=== PATIENT | male | born 1955 | race African-American/Black ===

== ENCOUNTER 2019-08-08 15:29 | Inpatient (IN) | payer MEDICARE, MEDICAID ==
[~2019-08-08] VITALS: Ht 185.4 cm; Wt 65.8 kg
[2019-08-08 15:36] VITALS: BP 105/63
--- NOTE | 2019-08-08 15:36 | NUR ---
ED Nurse Note: Pt brought in by ambulance to ED from SNF for failure to thrive. He is bedrest, weak, lack of appetite for weeks. Pt is alert and orientedx1, cooperative and obeys commands. Pt has roommate in SNF positive for Covid. No fever or cough. Pt lungs clear bilaterally.
[2019-08-08] MEDS ORDERED: DONEPEZIL HCL10 M2 ORAL (15:40)
[2019-08-08] MEDS ORDERED: PROTONIX20 MG ORAL (15:40)
[2019-08-08] MEDS ORDERED: CRANBERRY450 M4 PO (15:40)
[2019-08-08] MEDS ORDERED: NAMENDA10 MG ORAL (15:40)
[2019-08-08] MEDS ORDERED: DOCUSATE SODIU100 M2 ORAL (15:40)
[2019-08-08] MEDS ORDERED: FINASTERIDE5 MG ORAL (15:40)
[2019-08-08] MEDS ORDERED: FLOMAX0.4 MG ORAL (15:40)
[2019-08-08] MEDS ORDERED: ACETAMINOPHEN325 M1 ORAL (15:40)
[2019-08-08] MEDS ORDERED: MOM30 ML ORAL (15:40)
--- NOTE | 2019-08-08 16:16 | Diagnostic Imaging Report ---
Indication: Shortness of breath Technique: One view of the chest Comparison: none Findings: Inspiration is suboptimal. Somewhat prominent interstitial opacities are seen at both lung bases. There may be some atelectasis at the right lung base. The heart size is normal. The pleural spaces are clear. Impression: Prominent basilar interstitial opacities, nonspecific, early infiltrates possible. Right basilar atelectasis.
--- NOTE | 2019-08-08 16:20 | Emergency Room Report ---
History of Present Illness General Chief Complaint: General Complaint Source: Medical Record, EMS Present Illness HPI This patient presents from a long term facility. The patient has multiple chronic medical problems and is oriented to self at baseline. Per report from the long term facility, the patient has had poor oral intake. He presents for further evaluation. The patient himself is only oriented to self and unable to give any type of history. Allergies: Coded Allergies: No Known Allergies (Unverified , 08/08/19) COVID-19 Screening Contact w/high risk pt: Yes Recent Travel to affected area: No Experienced COVID-19 symptoms?: No Patient History Past Medical History: see triage record, GERD, dementia, psych hx - schizophrenia, other - Hx of Liver failure. Social History: Denies: smoking, alcohol use, drug use Reviewed Nursing Documentation: PMH: Agreed; PSxH: Agreed Nursing Documentation-PMH Hx Gastrointestinal Problems: Yes - dysphagia Review of Systems All Other Systems: negative except mentioned in HPI Physical Exam Vital Signs Date Time Temp Pulse Resp B/P (MAP) Pulse Ox O2 Delivery O2 Flow Rate FiO2 08/08/19 15:22 99.0 86 18 100/65 (77) 98 Room Air Sp02 EP Interpretation: reviewed, normal General Appearance: no apparent distress, alert, GCS 15, non-toxic Head: normocephalic, atraumatic Eyes: bilateral eye normal inspection ENT: hearing grossly normal, no angioedema Neck: normal inspection Respiratory: chest non-tender, lungs clear, normal breath sounds, no respiratory distress, no retraction, no accessory muscle use, speaking full sentences Cardiovascular #1: regular rate, rhythm, no edema Gastrointestinal: normal bowel sounds, soft, non-distended Rectal: deferred Musculoskeletal: other - At Baseline Neurologic: alert, motor strength/tone normal, oriented x3, sensory intact, responsive, speech normal Psychiatric: mood/affect normal Skin: other - See RN skin exam Medical Decision Making Diagnostic Impression: Primary Impression: Suspected COVID-19 virus infection ER Course This patient presents from a long term facility and further history was obtained that identified this patient's roommate was COVID 19+. The patient's chest x-ray has mild pulmonary edema consistent with COVID-19 lung findings. The patient was placed on droplet precautions. He remained stable in the emergency department. He is admitted for further evaluation and treatment. This patient was evaluated in the context of the global COVID-19 pandemic, which necessitated consideration that the patient might be at risk for infection with the [id number] virus that causes COVID-19. Institutional protocols and algorithms that pertain to the evaluation of patients at risk for COVID-19 and the state of rapid change based on information released by multiple regulatory bodies including the CDC and federal and state organizations. These policies and algorithms were followed during the patient' s care in the ED. Laboratory Tests Test 08/08/19 16:04 White Blood Count 5.0 K/UL (4.8-10.8) Red Blood Count 5.06 M/UL (4.70-6.10) Hemoglobin 15.1 G/DL (14.2-18.0) Hematocrit 47.3 % (42.0-52.0) Mean Corpuscular Volume 93 FL (80-99) Mean Corpuscular Hemoglobin 29.8 PG (27.0-31.0) Mean Corpuscular Hemoglobin Concent 31.9 G/DL (32.0-36.0) L Red Cell Distribution Width 13.4 % (11.6-14.8) Platelet Count 137 K/UL (150-450) L Mean Platelet Volume 8.7 FL (6.5-10.1) Neutrophils (%) (Auto) 55.4 % (45.0-75.0) Lymphocytes (%) (Auto) 35.5 % (20.0-45.0) Monocytes (%) (Auto) 8.3 % (1.0-10.0) Eosinophils (%) (Auto) 0.1 % (0.0-3.0) Basophils (%) (Auto) 0.7 % (0.0-2.0) Urine Color Brown Urine Appearance Cloudy Urine pH 6 (4.5-8.0) Urine Specific [place] 1.020 (1.005-1.035) Urine Protein 2+ (NEGATIVE) H Urine Glucose (UA) Negative (NEGATIVE) Urine Ketones 1+ (NEGATIVE) H Urine Blood 5+ (NEGATIVE) H Urine Nitrite Negative (NEGATIVE) Urine Bilirubin 1+ (NEGATIVE) H Urine Ictotest Negative (NEGATIVE) Urine Urobilinogen 8 MG/DL (0.0-1.0) H Urine Leukocyte Esterase 1+ (NEGATIVE) H Urine RBC Tntc /HPF (0 - 0) H Urine WBC 2-4 /HPF (0 - 0) Urine Squamous Epithelial Cells None /LPF (NONE/OCC) Urine Bacteria Occasional /HPF (NONE) Sodium Level 141 MMOL/L (136-145) Potassium Level 4.0 MMOL/L (3.5-5.1) Chloride Level 103 MMOL/L (98-107) Carbon Dioxide Level 30 MMOL/L (21-32) Anion Gap 8 mmol/L (5-15) Blood Urea Nitrogen 13 mg/dL (7-18) Creatinine 0.8 MG/DL (0.55-1.30) Estimated Glomerular Filtration Rate > 60 mL/min (>60) Glucose Level 109 MG/DL (74-106) H Lactic Acid Level 1.60 mmol/L (0.4-2.0) Calcium Level 8.5 MG/DL (8.5-10.1) Total Bilirubin 0.3 MG/DL (0.2-1.0) Aspartate Amino Transferase (AST) 27 U/L (15-37) Alanine Aminotransferase (ALT) 20 U/L (12-78) Alkaline Phosphatase 70 U/L (46-116) Total Creatine Kinase 86 U/L (26-308) Creatine Kinase MB 0.5 NG/ML (0.0-3.6) Creatine Kinase MB Relative Index 0.5 Troponin I 0.000 ng/mL (0.000-0.056) Total Protein 7.0 G/DL (6.4-8.2) Albumin 3.0 G/DL (3.4-5.0) L Globulin 4.0 g/dL Albumin/Globulin Ratio 0.8 (1.0-2.7) L EKG Diagnostic Results Rate: normal Rhythm: NSR ST Segments: no acute changes Rhythm Strip Diag. Results EP Interpretation: yes Rate: 80's Rhythm: NSR, no PVC's, no ectopy Chest X-Ray Diagnostic Results Chest X-Ray Diagnostic Results : Chest X-Ray Ordered: Yes # of Views/Limited/Complete: 1 View Indication: Other - FTT EP Interpretation: Yes Interpretation: other - Diffuse patchy opacities c/w mild pulmonary edema. Impression: Other - +interstitial edema Electronically Signed by: Vianney Andre DO Last Vital Signs Date Time Temp Pulse Resp B/P (MAP) Pulse Ox O2 Delivery O2 Flow Rate FiO2 08/08/19 15:22 99.0 86 18 100/65 (77) 98 Room Air Disposition: ADMITTED INPATIENT Condition: Serious Referrals: Zhou Andrade MD (PCP) Vianney Andre DO Aug 08, 2019 16:20
--- NOTE | 2019-08-08 16:30 | NUR ---
ED Nurse Note: Dr Andre notified pt combative when trying to draw blood and inptu straight cath.
--- NOTE | 2019-08-08 16:30 | NUR ---
ED Nurse Note: Covid, blood labs, and urine sent to lab.
[2019-08-08 16:54] LABS: APPEARANCE,URINE CLOUDY; BILIRUBIN, URINE 1+ (NEGATIVE); COLOR,URINE BROWN; GLUCOSE, URINE (UA) NEGATIVE (NEGATIVE); KETONES,URINE 1+ (NEGATIVE); LEUKOCYTE ESTERASE ,URINE 1+ (NEGATIVE); NITRITE,URINE NEGATIVE (NEGATIVE); PH,URINE 6 (4.5-8.0); PROTEIN,URINE 2+ (NEGATIVE); UROBILINOGEN,URINE 8 MG/DL (0.0-1.0)
[2019-08-08 16:57] LABS: BASOPHILS % (AUTO) 0.7 % (0.0-2.0); EOSINOPHILS % (AUTO) 0.1 % (0.0-3.0); HEMATOCRIT 47.3 % (42.0-52.0); HEMOGLOBIN 15.1 G/DL (14.2-18.0); LYMPHOCYTES % (AUTO) 35.5 % (20.0-45.0); MEAN CORPUSCULAR VOLUME 93 FL (80-99); MONOCYTES % (AUTO) 8.3 % (1.0-10.0); NEUTROPHILS % (AUTO) 55.4 % (45.0-75.0); PLATELET COUNT 137 K/UL (150-450); RED BLOOD COUNT 5.06 M/UL (4.70-6.10); RED CELL DISTRIBUTION WIDTH 13.4 % (11.6-14.8)
[2019-08-08 17:11] LABS: ANION GAP 8 mmol/L (5-15); BLOOD UREA NITROGEN 13 mg/dL (7-18); CALCIUM 8.5 MG/DL (8.5-10.1); CARBON DIOXIDE 30 MMOL/L (21-32); CHLORIDE 103 MMOL/L (98-107); CREATININE 0.8 MG/DL (0.55-1.30); SODIUM 141 MMOL/L (136-145)
[2019-08-08 17:25] LABS: ALANINE AMINOTRANSFERASE 20 U/L (12-78); ALBUMIN/GLOBULIN RATIO 0.8 (1.0-2.7); ALKALINE PHOSPHATASE 70 U/L (46-116); ASPARTATE AMINO TRANSFERASE 27 U/L (15-37); BILIRUBIN,TOTAL 0.3 MG/DL (0.2-1.0); CKMB 0.5 NG/ML (0.0-3.6); CREATINE KINASE 86 U/L (26-308)
[2019-08-08 18:50] VITALS: BP 111/63
[2019-08-08] MEDS ORDERED: LORazepam Inj 2mg/ml 1ml IV ONE (19:00)
--- NOTE | 2019-08-08 19:20 | NUR ---
ED Nurse Note: Report received from SUMMER Garvey. Pt is resting in bed at this time, appears mildly anxious, but did recently receive ativan. Will continue to monitor. Pt placed on portable electronic device monitor. Pt is awake and alert. Vital signs are stable. Safety measures in place. Pt repositioned.
[2019-08-08 19:30] VITALS: BP 110/63
[2019-08-08] MEDS ORDERED: Azithromycin 500 MG in NS 275 ML IV ONE (20:00)
[2019-08-08] MEDS ORDERED: Haloperidol 5mg/ml Inj IM PRN (20:15)
[2019-08-08] MEDS ORDERED: LORazepam Inj 2mg/ml 1ml IV PRN (20:15)
[2019-08-08] MEDS ORDERED: Acetaminophen 500mg (ES) tab ORAL PRN (20:15)
--- NOTE | 2019-08-08 20:15 | NUR ---
ED Nurse Note: Received bridging orders from Dr. andrea.
[2019-08-08 21:00] VITALS: BP 119/101
--- NOTE | 2019-08-08 21:00 | NUR ---
ED Nurse Note: Pt resting in bed with eyes closed, NAD. Vital signs are stable.
--- NOTE | 2019-08-08 22:00 | NUR ---
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 Safety measures in place.
[2019-08-08] MEDS: D5 1/2NS w/KCl 20mEq 1,000 ML IV SCH (22:19)
[2019-08-08 22:30] VITALS: BP 102/71
--- NOTE | 2019-08-08 22:30 | NUR ---
ED Nurse Note: IV fluids initiated, pt repositioned. Pt is in no acute distress and vital signs are stable, see flowsheet. Will continue to monitor pt.
[2019-08-09] VITALS (10 sets, daily range): BP systolic 102–136; BP diastolic 64–91
--- NOTE | 2019-08-09 00:30 | NUR ---
ED Nurse Note: Pt appears to be sleeping in bed. No acute distress noted. Vital signs are stable.
--- NOTE | 2019-08-09 02:30 | NUR ---
ED Nurse Note: Pt is sleeping at this time, NAD. VSS.
--- NOTE | 2019-08-09 04:30 | NUR ---
ED Nurse Note: Pt is awake and moving extremities in bed. No acute distress, breathing is normal and unlabored. Pt VSS, see flowsheet. Safety measures in place. Will cont. to monitor pt. IV patent and intact, IV fluids still infusing as ordered.
--- NOTE | 2019-08-09 05:55 | NUR ---
ED Nurse Note: AM labs drawn by RN and sent to lab.
--- NOTE | 2019-08-09 06:00 | NUR ---
ED Nurse Note: Pt moved to room 7 and placed in lu bed. Pt repositioned, skin is clean/dry/intact. Pt connected to desk monitor. Pt provided with blankets for comfort. Pt is in no acute distress, he is awake and alert able to answer simple, yes and no questions. Pt IV is patent and intact. Vital signs are stable. Safety measures in place.
[2019-08-09 06:14] LABS: BASOPHILS % (AUTO) 0.7 % (0.0-2.0); EOSINOPHILS % (AUTO) 0.1 % (0.0-3.0); HEMATOCRIT 45.5 % (42.0-52.0); HEMOGLOBIN 15.9 G/DL (14.2-18.0); LYMPHOCYTES % (AUTO) 41.4 % (20.0-45.0); MEAN CORPUSCULAR VOLUME 89 FL (80-99); MONOCYTES % (AUTO) 7.6 % (1.0-10.0); NEUTROPHILS % (AUTO) 50.2 % (45.0-75.0); PLATELET COUNT 127 K/UL (150-450); RED BLOOD COUNT 5.12 M/UL (4.70-6.10); RED CELL DISTRIBUTION WIDTH 11.8 % (11.6-14.8); WHITE BLOOD COUNT 5.1 K/UL (4.8-10.8)
[2019-08-09 06:30] LABS: ALANINE AMINOTRANSFERASE 17 U/L (12-78); ALBUMIN/GLOBULIN RATIO 0.7 (1.0-2.7); ALKALINE PHOSPHATASE 68 U/L (46-116); ANION GAP 7 mmol/L (5-15); ASPARTATE AMINO TRANSFERASE 28 U/L (15-37); BILIRUBIN,TOTAL 0.4 MG/DL (0.2-1.0); BLOOD UREA NITROGEN 9 mg/dL (7-18); CALCIUM 8.6 MG/DL (8.5-10.1); CARBON DIOXIDE 29 MMOL/L (21-32); CHLORIDE 103 MMOL/L (98-107); CREATININE 0.8 MG/DL (0.55-1.30); POTASSIUM 3.8 MMOL/L (3.5-5.1); SODIUM 139 MMOL/L (136-145)
--- NOTE | 2019-08-09 07:20 | NUR ---
HAND-OFF: Report given to SUMMER Thompson and endorsed plan of care.
--- NOTE | 2019-08-09 07:34 | NUR ---
ED Nurse Note: Report received camron Estrada RN. Pt shows no signs of acute distress. Pt lying in bed in semi-fowlers. A+Ox1. Respirations even and unlabored on room air. Vitals stable as documented.
[2019-08-09] MEDS: D5 1/2NS w/KCl 20mEq 1,000 ML IV SCH ×2 (09:43→22:11)
--- NOTE | 2019-08-09 13:10 | NUR ---
ED Nurse Note: Regular diet sent for patient, however pt has no teeth. Checked SNF paperwork and noted pt has pureed diet there. Diet changed and new tray called for.
[2019-08-09] MEDS ORDERED: cefTRIAXone 1 GM in NS 55 ML IVPB ONE (13:15)
[2019-08-09] MEDS ORDERED: Azithromycin 500 MG in NS 275 ML IV ONE (13:15)
--- NOTE | 2019-08-09 18:22 | NUR ---
ED Nurse Note: Pt incontinent of urine x1. Pt washed and linen changed.
--- NOTE | 2019-08-09 19:15 | NUR ---
ED Nurse Note: Report received from SUMMER Thompson. Pt is awake and alert, resting in bed. NAD, breathing is normal and unlabored. Safety measures in place. VSS. Will cont. to monitor.
--- NOTE | 2019-08-09 21:50 | NUR ---
ED Nurse Note: Report given to SUMMER Betts.
--- NOTE | 2019-08-09 22:15 | NUR ---
ED Nurse Note: Pt is stable for transfer to unit at this time per ERMD. Pt is aaox1, no acute distress noted. VSS. Pt being transferred to unit via gurney, connected to case monitor by carly and RN with ISO precuations in place. Pt belongings sent with pt. IV is patent and intact.
--- NOTE | 2019-08-09 22:30 | NUR ---
NURSE NOTES: Got report from Natalie WHEELER. Pt arrived via gurney from ER. Pt in stable condition. Pt is A+Ox2-3. Pt is nonambulatory. VSS T:98 HR:76 R:16 BP:134/113 O2:98% on room air. Denies any pain or n/v. Pt has L FA 20g patent intact. No skin issues noted. Pt is incontinent. Pt on enchilada maker running Sinus Rhythm. No s/s of distress or discomfort noted. Pt resting in bed comfortably. Bed in low and locked position, call light within reach, bedside table within reach. Continue to monitor. Orders placed by Dr. Andrade.
[2019-08-10] VITALS: BP 134/113
--- NOTE | 2019-08-10 01:49 | History & Physical ---
History of Present Illness General Date patient seen: Aug 09, 2019 Time patient seen: 22:55 Reason for Hospitalization: Failure to thrive Present Illness HPI Also patient may have Covid 19 he is not eating or dirnking Allergies: Coded Allergies: No Known Allergies (Unverified , 08/08/19) COVID-19 Screening Contact w/high risk pt: Yes Recent Travel to affected area: No Experienced COVID-19 symptoms?: No COVID-19 symptoms experienced: Flu-Like Symptoms Medication History Scheduled Docusate Sodium (Docusate Sodium), 100 MG ORAL DAILY, (Reported) Donepezil Hcl* (Donepezil Hcl*), 10 MG ORAL DAILY, (Reported) Finasteride (Finasteride), 5 MG ORAL DAILY, (Reported) Magnesium Hydroxide (Milk of Magnesia), 30 ML ORAL DAILY, (Reported) Memantine Hcl* (Namenda*), 10 MG ORAL DAILY, (Reported) Pantoprazole Sodium (Protonix), 20 MG ORAL DAILY, (Reported) Tamsulosin HCl (Flomax), 0.4 MG ORAL DAILY, (Reported) Scheduled PRN Acetaminophen* (Acetaminophen 325MG Tablet*), 325 MG ORAL Q4H PRN for , ( Reported) Miscellaneous Medications Cranberry Fruit Concentrate (Cranberry), 450 MG PO, (Reported) Patient History Limited by: medical condition History Provided By: Medical Record Healthcare decision maker N Resuscitation status Advanced Directive on File Past Medical/Surgical History Past Medical/Surgical History: (1) Anemia (2) Dementia (3) Suspected COVID-19 virus infection (4) Depression Review of Systems Review of Symptoms General ROS: weight loss or fever Psychological ROS: depression and mood changes, memory loss Ophthalmic ROS: no visual changes or eye irritation ENT ROS: no nasal congestion, hearing loss, dizziness Allergy and Immunology ROS: no allergic symptoms or urticaria Hematological and Lymphatic ROS: no swollen glands, unusual bleeding or bruising Endocrine ROS: no polyuria, polydipsia, weight changes, temperature intolerance Respiratory ROS: no cough, shortness of breath, or wheezing Cardiovascular ROS: no chest pain or dyspnea on exertion Gastrointestinal ROS: denies abdominal pain, bright red blood in stool. Musculoskeletal ROS: myalgias or arthralgias Neurological ROS: no TIA or stroke symptoms Dermatological ROS: no new or changing skin lesions, rashes or pruritis Physical Exam Physical Exam General appearance: alert, cooperative, no distress, appears stated age Head: Normocephalic, without obvious abnormality, atraumatic Eyes: conjunctivae/corneas clear. PERRL, EOM's intact. Fundi benign Throat: Lips, mucosa, and tongue normal. Teeth and gums normal Neck: supple, symmetrical, trachea midline, no adenopathy, thyroid: not enlarged, symmetric, no tenderness/mass/nodules, no carotid bruit and no JVD Lungs: clear to auscultation bilaterally Heart: regular rate and rhythm, S1, S2 normal, no murmur, click, rub or gallop Abdomen: soft, non-tender. Bowel sounds normal. No masses, no organomegaly Extremities: extremities normal, atraumatic, no cyanosis or edema Pulses: 2+ and symmetric Skin: Skin color, texture, turgor normal. No rashes or lesions Neurologic: Grossly normal Last 24 Hour Vital Signs Date Time Temp Pulse Resp B/P (MAP) Pulse Ox O2 Delivery O2 Flow Rate FiO2 08/09/19 22:30 67 08/09/19 22:15 98.5 74 14 119/65 100 Room Air 98 08/09/19 21:30 98.0 82 16 113/80 100 Room Air 98 08/09/19 19:25 98.0 80 14 136/91 100 Room Air 98 08/09/19 15:43 72 12 127/84 97 Room Air 98 08/09/19 13:10 74 12 121/79 98 Room Air 98 08/09/19 10:00 78 12 128/75 97 Room Air 98 08/09/19 08:00 72 12 121/71 99 Room Air 98 08/09/19 06:00 98.0 65 12 107/64 100 Room Air 98 08/09/19 04:30 98.7 67 17 102/65 100 Room Air 98 08/09/19 02:30 98.7 60 15 102/84 99 Room Air 98 Intake and Output 08/09/19 08/10/19 19:00 07:00 Intake Total 500 ml Balance 500 ml Intake Oral 500 ml # Voids 2 Laboratory Tests Test 08/09/19 06:00 White Blood Count 5.1 K/UL (4.8-10.8) Red Blood Count 5.12 M/UL (4.70-6.10) Hemoglobin 15.9 G/DL (14.2-18.0) Hematocrit 45.5 % (42.0-52.0) Mean Corpuscular Volume 89 FL (80-99) Mean Corpuscular Hemoglobin 31.1 PG (27.0-31.0) H Mean Corpuscular Hemoglobin Concent 35.0 G/DL (32.0-36.0) Red Cell Distribution Width 11.8 % (11.6-14.8) Platelet Count 127 K/UL (150-450) L Mean Platelet Volume 6.6 FL (6.5-10.1) Neutrophils (%) (Auto) 50.2 % (45.0-75.0) Lymphocytes (%) (Auto) 41.4 % (20.0-45.0) Monocytes (%) (Auto) 7.6 % (1.0-10.0) Eosinophils (%) (Auto) 0.1 % (0.0-3.0) Basophils (%) (Auto) 0.7 % (0.0-2.0) Sodium Level 139 MMOL/L (136-145) Potassium Level 3.8 MMOL/L (3.5-5.1) Chloride Level 103 MMOL/L (98-107) Carbon Dioxide Level 29 MMOL/L (21-32) Anion Gap 7 mmol/L (5-15) Blood Urea Nitrogen 9 mg/dL (7-18) Creatinine 0.8 MG/DL (0.55-1.30) Estimat Glomerular Filtration Rate > 60 mL/min (>60) Glucose Level 112 MG/DL (74-106) H Calcium Level 8.6 MG/DL (8.5-10.1) Total Bilirubin 0.4 MG/DL (0.2-1.0) Aspartate Amino Transf (AST/SGOT) 28 U/L (15-37) Alanine Aminotransferase (ALT/SGPT) 17 U/L (12-78) Alkaline Phosphatase 68 U/L (46-116) Total Protein 7.6 G/DL (6.4-8.2) Albumin 3.0 G/DL (3.4-5.0) L Globulin 4.6 g/dL Albumin/Globulin Ratio 0.7 (1.0-2.7) L Height (Feet): 6 Height (Inches): 1.00 Weight (Pounds): 145 Medications Current Medications Medications (Trade) Dose Ordered Sig/Chelle Route PRN Reason Start Time Stop Time Status Last Admin Dose Admin Acetaminophen (Tylenol) 500 mg Q4H PRN ORAL MILD PAIN/T>100.5 08/08/19 20:15 09/07/19 20:14 Dextrose/ Electrolytes 1,000 ml @ 80 mls/hr [id number] IV 08/08/19 21:11 09/07/19 21:10 08/09/19 22:11 Haloperidol Lactate (Haldol) 5 mg Q6H PRN IM Agitation 08/08/19 20:15 09/22/19 20:14 08/08/19 22:19 Lorazepam (Ativan 2mg/ml 1ml) 1 mg Q6H PRN IV Agitation 08/08/19 20:15 08/15/19 20:14 Assessment/Plan Status: stable Diagnosis [facility] I: Failure to thrive Diffuse weakness Schizoaffective disorder [facility] Hospital declaration INPATIENT level of care is warranted for this patient because patient is a 89 year old with who presents with suspicion of . I have a high level of concern because . Patient is at high risk for . Plan of care/treatment include . Patient care is expected to be greater than 2 midnights. OBSERVATION level of care is warranted for this patient. Patient is a 89 year old with who presents with . Patient will be admitted for 1 midnight, but if additional night(s) is/are necessary, patient will be converted to inpatient status for the entire hospitalization Disposition: Once the patient is stable to leave the hospital, I anticipate the patient will likely be discharged to the following environment: Estimated discharge date: I spent 70 minutes on this patient's case, and minutes was dedicated to counseling and/or care coordination. MIPS (Merit-based Incentive Payment System) Applicable CPT: 84976, 88631 CHECK ALL THAT ARE MET: Measure #5 (CHF): All ages. Prescribe ERNESTINE/ARB upon discharge for patients with left ventricular systolic dysfunction. If not, the reason is clearly documented in the medical chart. Measure #8 (CHF): All ages. Prescribe a beta christian upon discharge for patients with left ventricular systolic dysfunction. If not, the reason is clearly documented in the medical chart. Measure #47 Advance care plan or surrogate decision maker documented in the medical record. Measure #130 The provider has documented, updated, or reviewed the patients current medication list and has documented it in the patients note. Measure #374 (All): Send report to referring provider. Measure #407(Sepsis due to MSSA bacteremia): Age 18+ Patient treated with a beta-lactam antibiotic (Nafcillin, Oxacillin or Cefazolin) as definitive therapy. MEDICAL COMPLEXITY High complexity medical decision making (need 2/3 categories) Problem - need 4 points Acute/new problem with new plan for workup (4 points, 1 max) Acute/new problem without additional workup (3 points, 1 max) Unstable chronic problem actively being managed (2 point each, 2 max) Stable chronic problem actively being managed (1 point each, 2 max) Self-limited/transient process (constipation, muscle ache, etc) (1 point each , 2 max) Data - need 4 points Reviewed labs/imaging studies (1 points, 2 max) Independent review of imaging (EKG, xrays, etc) (2 points, 2 max) Discussed case with consult/other MD/RN (2 points, 2 max) High Risk - qualify if have one of the following: Severe exacerbation of acute problem, acute mental status change, IV narcotics , monitoring drug levels (vancomycin, INR, tacrolimus etc) Zhou Andrade MD Aug 10, 2019 01:49
--- NOTE | 2019-08-10 03:10 | NUR ---
NURSE NOTES: Lab called pt is positive COVID-19
[2019-08-10 04:00] VITALS: BP 127/63
--- NOTE | 2019-08-10 07:50 | NUR ---
HAND-OFF: Report given to Dottie WHEELER.
[2019-08-10 08:00] VITALS: BP 101/65
--- NOTE | 2019-08-10 08:10 | NUR ---
RD ASSESSMENT & RECOMMENDATIONS SEE CARE ACTIVITY FOR COMPLETE ASSESSMENT DAILY ESTIMATED NEEDS: Needs based on Cardiac, pulmonary 68.2kg 27-32 kcals/kg 9735-4502 total kcals 1-1.5 g protein/kg 68-102 g total protein 25-30 mL/kg 9155-3778 total fluid mLs NUTRITION DIAGNOSIS: Increased kcal needs r/t underweight status as evidenced by pt is 84% of [place] Body Weight, h/o CVA on texture modified diet w/ recent FTT and decreased po intake. (CURRENT DIET: Regular puree/ NTL) PO DIET RECOMMENDATIONS: Maintain liberalized Regular diet / texture puree + NTL -------- ADDITIONAL RECOMMENDATIONS: 1) Per SNF: 6'0" and 150# Maintain calibrated bed scale wts 2) Add Ensure TID w/ trays 3) MAIL OPENER eval for appropriate texture 4) Monitor po intake-> need for temporary non oral feeds.
--- NOTE | 2019-08-10 08:15 | NUR ---
NURSE NOTES: Pt is AOx1, Pt is on room air with stable 02 sat. Pt is on bedrest. Pt has IV site to Left FA running D5 1/2 NS +20KCL @ 80cc/hr. bed in lowest position, call light within reach, will continue with plan of care.
[2019-08-10] MEDS: D5 1/2NS w/KCl 20mEq 1,000 ML IV SCH ×2 (10:41→23:14)
--- NOTE | 2019-08-10 11:23 | NUR ---
CASE MANAGEMENT:REVIEW 64 YR OLD MALE BIBA FROM [facility] CC: FAILURE TO THRIVE. ROOMMATE AT SNF POSITIVE FOR COVID 19 SI: SUSPECTED COVID 19 99.0 86 18 100/65 98% ON RA PLT-137 ALB-3.0 IS: IV ATIVAN X1 IV AZITHROMYCIN X1 BLOOD CX CHEST XRAY COVID 19 ISOLATION PRECAUTIONS : TO TELEMETRY DCP: FROM [facility] PLAN: F/U COVID 19 TEST
[2019-08-10 12:00] VITALS: BP 126/71
[2019-08-10 16:00] VITALS: BP 129/70
--- NOTE | 2019-08-10 19:11 | NUR ---
HAND-OFF: Report given to azalea WHEELER.
--- NOTE | 2019-08-10 19:12 | NUR ---
NURSE NOTES: Got report from Dottie WHEELER. Pt in stable condition. No s/s of distress or discomfort noted. Pt resting in bed comfortably. Bed in low and locked position, call light within reach, bedside table within reach. Continue to monitor.
[2019-08-10 20:00] VITALS: BP 150/91
[2019-08-11] VITALS: BP 142/93
[2019-08-11 04:00] VITALS: BP 106/72
--- NOTE | 2019-08-11 05:27 | General Progress Note ---
Assessment/Plan Status: doing well, stable Status Narrative He is doing well making arrangement for discharge Assessment/Plan: Covid 19 positive Schizophrenia being treated Failure to thrive- on IV hydration Plan discharge back to [facility] Subjective Date patient seen: Aug 10, 2019 Time patient seen: 22:00 ROS Limited/Unobtainable: Yes Constitutional: Reports: weakness HEENT: Reports: no symptoms Cardiovascular: Reports: no symptoms Respiratory: Reports: no symptoms Gastrointestinal/Abdominal: Reports: no symptoms Genitourinary: Reports: no symptoms Neurologic/Psychiatric: Reports: pre-existing deficit Endocrine: Reports: no symptoms Hematologic/Lymphatic: Reports: no symptoms Allergies: Coded Allergies: No Known Allergies (Unverified , 08/08/19) Objective Last 24 Hour Vital Signs Date Time Temp Pulse Resp B/P (MAP) Pulse Ox O2 Delivery O2 Flow Rate FiO2 08/11/19 04:00 98.6 68 17 106/72 (83) 96 08/11/19 04:00 61 08/11/19 00:00 97.9 81 19 142/93 (109) 95 08/11/19 00:00 65 08/10/19 20:07 Room Air 08/10/19 20:00 97.4 83 19 150/91 (110) 95 08/10/19 20:00 75 08/10/19 16:00 67 08/10/19 16:00 97.7 73 20 129/70 (89) 98 08/10/19 12:00 71 08/10/19 12:00 97.6 71 20 126/71 (89) 97 08/10/19 09:00 Room Air 08/10/19 08:00 97.7 70 20 101/65 (77) 99 08/10/19 08:00 61 Intake and Output 08/10/19 08/11/19 19:00 07:00 # Voids 2 Height (Feet): 6 Height (Inches): 1.00 Weight (Pounds): 145 General Appearance: no apparent distress EENT: PERRL/EOMI Neck: non-tender, normal alignment Cardiovascular: normal rate Respiratory/Chest: chest wall non-tender Abdomen: normal bowel sounds, non tender, soft, no organomegaly, no mass Pelvis: normal external exam Extremities: normal range of motion, non-tender Neurologic: stockroom keeper II-XII grossly normal, no motor/sensory deficits, alert Skin: normal pigmentation Lymphatic: normal anterior cervical (L), normal anterior cervical (R), normal posterior cervical (L), normal posterior cervical (R), normal submandibular (L) , normal submandibular (R), normal supraclavicular (L), normal supraclavicular ( R), normal axillary (L), normal axillary (R), normal inguinal (L), normal inguinal (R), normal other Zhou Andrade MD Aug 11, 2019 05:27
[2019-08-11] MEDS: D5 1/2NS w/KCl 20mEq 1,000 ML IV SCH (05:37)
--- NOTE | 2019-08-11 06:00 | Consultation ---
DATE OF CONSULTATION: 08/11/2019 HISTORY OF PRESENT ILLNESS: This is a 64-year-old male with a history of depression, anemia, has been admitted to the hospital for possible COVID. The patient is presenting with depressed mood and anhedonia, worthlessness. The patient is now positive for COVID, presents with depressed mood, anhedonia, worthlessness, hopelessness. The patient is poor historian. He is oriented to date. He also has psychomotor retardation and is hopeless. No suicidal or homicidal ideation. PAST PSYCHIATRIC HISTORY: Depression and anxiety. Outside of the hospital, the patient is taking memantine and benazepril. No antidepressants. PAST MEDICAL HISTORY: Significant for anemia. ALLERGIES: No known drug allergies. SUBSTANCE USE HISTORY: No history of illicit drug use or alcohol. MENTAL STATUS EXAMINATION: The patient is alert and oriented to times, self, and place. Some insight into the situation. Mood is depressed. Affect is constricted. Congruent mood. Thought process is concrete. Thought content, no suicidal or homicidal ideation. Cognition is impaired. Insight and judgment impaired. ASSESSMENT: AXIS I: 1. Dementia. 2. Major depressive disorder. AXIS II: Deferred. AXIS III: As above. AXIS IV: Low. AXIS V: 20. PLAN: 1. . 2. Haldol p.r.n. 3. We will continue to follow and readjust the medications. Alyssia Estrada M.D. DR: Pantera JOB#: [id number] CC:
--- NOTE | 2019-08-11 07:43 | NUR ---
HAND-OFF: Report given to Winnie WHEELER. Addendum: 08/11/19 at 0747 by Bin Ayoub RN HAND-OFF: Report given to Yoan WHEELER.
[2019-08-11 08:00] VITALS: BP 115/68
--- NOTE | 2019-08-11 08:16 | NUR ---
NURSE NOTES: Pt in bed in high fowlers, eating breakfast on his own, pt calm and cooperative, Ox1 baseline for the patient, call light next to patient, bed alarm on, or incontinent, pt will need to be turned Q2hrs or less, IV intact, pt denies pain, no s/s of distress or sob noted.
[2019-08-11 12:00] VITALS: BP 112/71
--- NOTE | 2019-08-11 12:19 | NUR ---
CASE MANAGEMENT:REVIEW 08/11/19 SI: COVID 19 PNEUMONIA 97.8 65 18 115/68 98% ON RA IS: IVF@40/HR [place] PO QD : TELEMETRY STATUS DCP: PATIENT IS FROM [facility] PLAN: PER HEALTH DEPARTMENT GUIDELINES COVID 19 POSITIVE PATIENTS FROM [facility] MUST: 1) REMAIN HOSPITALIZED X10 DAYS 2) BE AFEBRILE X72 HR S PRIOR TO RETURNING TO SNF OR 3) HAVE 2 CONSECUTIVE NEGATIVE COVID 19 TEST
--- NOTE | 2019-08-11 12:24 | NUR ---
DISCHARGE PLANNING PER HEALTH DEPARTMENT GUIDELINES COVID 19 POSITIVE PATIENTS FROM [facility] MUST: 1) REMAIN HOSPITALIZED X10 DAYS 2) BE AFEBRILE X72 HR S PRIOR TO RETURNING TO SNF OR 3) HAVE 2 CONSECUTIVE NEGATIVE COVID 19 TEST
[2019-08-11 16:00] VITALS: BP 122/76
--- NOTE | 2019-08-11 19:50 | NUR ---
NURSE NOTES: Received pt and report from SUMMER Milton. Observed pt resting in bed with both eyes open. Pt is A/Ox1. conveyor monitor is in placed; pt is NSR. IV site intact, asymptomatic, and patent; running D5 1/2 NS w/KCL 20mEq @40cc/hr. Bed is in the lowest position and locked. Call light and bedside table is within reach. No signs/symptoms of acute distress noted at this time. Will continue plan of care.
[2019-08-11 20:00] VITALS: BP 120/68
--- NOTE | 2019-08-11 20:00 | NUR ---
HAND-OFF: Report given to Mag Rn, endorsed condom cath and how the patient my need to be turned and needs to be looked at every two hours .
[2019-08-12] VITALS: BP 122/58
--- NOTE | 2019-08-12 00:39 | General Progress Note ---
Assessment/Plan Status: doing well, stable Status Narrative He is doing well Assessment/Plan: Covid 19 positive Schizophrenia being treated Failure to thrive- on IV hydration Plan discharge back to [place] Subjective Date patient seen: Aug 11, 2019 Time patient seen: 23:00 ROS Limited/Unobtainable: No Constitutional: Reports: no symptoms HEENT: Reports: no symptoms Cardiovascular: Reports: no symptoms Respiratory: Reports: no symptoms Gastrointestinal/Abdominal: Reports: no symptoms Genitourinary: Reports: no symptoms Neurologic/Psychiatric: Reports: no symptoms Endocrine: Reports: no symptoms Hematologic/Lymphatic: Reports: no symptoms Allergies: Coded Allergies: No Known Allergies (Unverified , 08/08/19) Objective Last 24 Hour Vital Signs Date Time Temp Pulse Resp B/P (MAP) Pulse Ox O2 Delivery O2 Flow Rate FiO2 08/11/19 16:15 73 08/11/19 16:00 98.3 71 18 122/76 (91) 97 08/11/19 12:00 98.1 69 17 112/71 (85) 94 08/11/19 11:44 64 08/11/19 08:00 97.8 65 18 115/68 (84) 98 08/11/19 07:45 Room Air 08/11/19 07:42 66 08/11/19 04:00 98.6 68 17 106/72 (83) 96 08/11/19 04:00 61 Intake and Output 08/11/19 08/12/19 19:00 07:00 Intake Total 650 ml Output Total 400 ml Balance 250 ml Intake Oral 650 ml Output Urine Total 400 ml Height (Feet): 6 Height (Inches): 1.00 Weight (Pounds): 145 General Appearance: WD/WN, no apparent distress, confused EENT: PERRL/EOMI Neck: non-tender, normal alignment Cardiovascular: normal rate Respiratory/Chest: chest wall non-tender, lungs clear, decreased breath sounds Abdomen: normal bowel sounds, non tender, soft, no organomegaly Extremities: normal range of motion, non-tender Neurologic: no motor/sensory deficits, alert Zhou Andrade MD Aug 12, 2019 00:39
[2019-08-12 04:00] VITALS: BP 107/65
[2019-08-12] MEDS: D5 1/2NS w/KCl 20mEq 1,000 ML IV SCH (05:51)
--- NOTE | 2019-08-12 07:00 | NUR ---
NURSE NOTES:Handoff received from My,RN. Patient received awake and alert and able to make needs known, no acute signs of distress noted. Patient is on isolation for Covid. On room air, IV site clean dry and intact, running prescribed fluids. Bed in the low and locked position with call light within reach, will continue to monitor patient.
--- NOTE | 2019-08-12 07:32 | NUR ---
HAND-OFF: Report given to SUMMER Mcdonald. Plan of care endorsed.
[2019-08-12 08:00] VITALS: BP_SYST 119; BP_SYST 99; BP_DIAS 51; BP_DIAS 68
[2019-08-12 12:00] VITALS: BP 106/64
[2019-08-12 16:00] VITALS: BP 121/78
--- NOTE | 2019-08-12 19:35 | NUR ---
NURSE NOTES: Received pt and report from SUMMER Mcdonald. Observed pt resting in bed with both eyes open. Pt is A/Ox1. patient monitor is in placed; pt is NSR. IV site intact, asymptomatic, and patent; running D5 1/2 NS w/KCL 20mEq @40cc/hr. Bed is in the lowest position and locked. Call light and bedside table is within reach. No signs/symptoms of acute distress noted at this time. Will continue plan of care.
--- NOTE | 2019-08-12 19:42 | NUR ---
HAND-OFF: Report given to SUMMER Hathaway.
[2019-08-12 20:00] VITALS: BP 119/71
--- NOTE | 2019-08-12 20:15 | Progress Note ---
DATE: 08/11/2019 SUBJECTIVE: The patient is in bed, no acute distress noted. Episodes of anxiety, disoriented, difficult to manage and anxious. Poor insight. He is a poor historian and is unable to provide any history. MENTAL STATUS EXAMINATION: The patient is alert, oriented to self, disoriented. Mood is anxious. Affect is flat. Thought process is concrete. Thought content, no suicidal or homicidal ideation. ASSESSMENT: 1. Dementia. 2. Anxiety disorder. PLAN: 1. Continue the Haldol. 2. Citalopram. 3. Ativan as needed. Alyssia Estrada M.D. DR: KELSY JOB#: [id number] CC:
[2019-08-13] VITALS: BP 110/65
[2019-08-13 04:00] VITALS: BP 115/75
--- NOTE | 2019-08-13 04:33 | General Progress Note ---
Assessment/Plan Status: doing well, stable Assessment/Plan: Covid 19 positive Schizophrenia being treated Failure to thrive- on IV hydration Plan discharge back to [place] Subjective Date patient seen: Aug 12, 2019 Time patient seen: 22:50 Constitutional: Reports: weakness HEENT: Reports: no symptoms Cardiovascular: Reports: no symptoms Respiratory: Reports: SOB with excertion Gastrointestinal/Abdominal: Reports: no symptoms Genitourinary: Reports: no symptoms Neurologic/Psychiatric: Reports: no symptoms Endocrine: Reports: no symptoms Hematologic/Lymphatic: Reports: no symptoms Allergies: Coded Allergies: No Known Allergies (Unverified , 08/08/19) Objective Last 24 Hour Vital Signs Date Time Temp Pulse Resp B/P (MAP) Pulse Ox O2 Delivery O2 Flow Rate FiO2 08/13/19 00:00 97.7 71 19 110/65 (80) 99 08/12/19 23:35 63 08/12/19 21:00 Room Air 08/12/19 20:00 97.0 65 18 119/71 (87) 94 08/12/19 19:44 67 08/12/19 16:00 71 08/12/19 16:00 97.5 69 20 121/78 (92) 95 08/12/19 12:00 57 08/12/19 12:00 97.2 63 20 106/64 (78) 94 08/12/19 09:00 Room Air 08/12/19 08:00 66 08/12/19 08:00 97.5 65 20 119/68 (85) 97 Intake and Output 08/12/19 08/13/19 19:00 07:00 Intake Total 1200 ml Balance 1200 ml Intake Oral 1200 ml # Voids 5 Height (Feet): 6 Height (Inches): 1.00 Weight (Pounds): 145 General Appearance: no apparent distress EENT: PERRL/EOMI Neck: non-tender, normal alignment, supple Cardiovascular: normal peripheral pulses, normal rate Respiratory/Chest: normal breath sounds, decreased breath sounds Abdomen: normal bowel sounds, non tender, soft Extremities: no calf tenderness Edema: no edema noted Arm (L), no edema noted Arm (R), no edema noted Leg (L), no edema noted Leg (R), no edema noted Pedal (L), no edema noted Pedal (R), no edema noted Generalized Neurologic: no motor/sensory deficits, alert, responsive Skin: normal pigmentation Lymphatic: normal anterior cervical (L), normal anterior cervical (R), normal posterior cervical (L), normal posterior cervical (R), normal submandibular (L) , normal submandibular (R), normal supraclavicular (L), normal supraclavicular ( R), normal axillary (L), normal axillary (R), normal inguinal (L), normal inguinal (R), normal other Zhou Andrade MD Aug 13, 2019 04:33
[2019-08-13] MEDS: D5 1/2NS w/KCl 20mEq 1,000 ML IV SCH (05:39)
--- NOTE | 2019-08-13 07:30 | NUR ---
NURSE NOTES:Handoff received from SUMMER Hathaway. Patient received sleeping in bed, no acute signs of distress noted. Patient has IV fluids running at 40ml/HR IV site is clean dry and intact. Bed in the low and locked position with call light within reach. Patient is on room air, isolation for Covid19. will continue to monitor patient.
--- NOTE | 2019-08-13 07:52 | NUR ---
HAND-OFF: Report given to SUMMER Mcdonald. Plan of care endorsed.
[2019-08-13 08:00] VITALS: BP 99/59
[2019-08-13 12:00] VITALS: BP 97/59
[2019-08-13 16:00] VITALS: BP 123/89
--- NOTE | 2019-08-13 19:30 | NUR ---
HANDOFF REPORT RECEIVED FROM LOUIE WHEELER.
--- NOTE | 2019-08-13 19:33 | NUR ---
HAND-OFF: Report given to SUMMER Kumar.
[2019-08-13 20:00] VITALS: BP 123/96
--- NOTE | 2019-08-13 20:30 | NUR ---
ASSESSMENT COMPLETED. PT REFUSING THICKEN LIQUIDS AND HS SNACKS AT THIS TIME. WILL OFFER LATER. PLAN: ENC. AND ASSIST WITH NUTRITIONAL SUPPORT. COMFORT MEASURES. D51/2 NS W/20 KCL CONT. INFUSING INTO NEW IV SITE WITHOUT DIFFICULTY. CONTINUE TO ASSESS SITE FOR INTEGRITY. COVID 19 PRECAUTIONS MAINTAINED PER HOSPITAL POLICY.
[2019-08-14] VITALS: BP 119/81
[2019-08-14 04:00] VITALS: BP 120/71
[2019-08-14] MEDS: D5 1/2NS w/KCl 20mEq 1,000 ML IV SCH (06:47)
--- NOTE | 2019-08-14 07:30 | NUR ---
HANDOFF REPORT TO YOSSI WHEELER. PT AWAKE IN BED. NO DISTRESS.
--- NOTE | 2019-08-14 07:30 | NUR ---
HANDOFF REPORT TO ELOY WHEELER. PT AWAKE IN BED. NO DISTRESS.
[2019-08-14 08:00] VITALS: BP 119/68
--- NOTE | 2019-08-14 09:39 | NUR ---
*-*BRICK GRADER*-* PATIENT HAS BEEN REFERRED BACK TO: [facility] P: [phone] F: [phone] ~~~~~~~~~~~~~~~~~~~CLINICALS FAXED~~~~~~~~~~~~~~~~~~~~~~~~ Addendum: 08/14/19 at 1637 by RENETTA MARCUS CM PLACED MULTIPLE CALLS TO [facility],REFAXED CLINICALS, SPOKE WITH JOAQUIN, STATED SHE WILL CALL BACK WITH SHE RECEIVE CLINICALS.
[2019-08-14 10:35] LABS: BASOPHILS % (AUTO) 1.4 % (0.0-2.0); EOSINOPHILS % (AUTO) 0.4 % (0.0-3.0); HEMATOCRIT 40.1 % (42.0-52.0); HEMOGLOBIN 13.8 G/DL (14.2-18.0); LYMPHOCYTES % (AUTO) 34.3 % (20.0-45.0); MEAN CORPUSCULAR VOLUME 88 FL (80-99); MONOCYTES % (AUTO) 9.2 % (1.0-10.0); NEUTROPHILS % (AUTO) 54.7 % (45.0-75.0); PLATELET COUNT 263 K/UL (150-450); RED BLOOD COUNT 4.54 M/UL (4.70-6.10); RED CELL DISTRIBUTION WIDTH 11.5 % (11.6-14.8); WHITE BLOOD COUNT 5.9 K/UL (4.8-10.8)
[2019-08-14 10:51] LABS: ALANINE AMINOTRANSFERASE 18 U/L (12-78); ALBUMIN 2.6 G/DL (3.4-5.0); ALBUMIN/GLOBULIN RATIO 0.5 (1.0-2.7); ALKALINE PHOSPHATASE 62 U/L (46-116); ANION GAP 7 mmol/L (5-15); ASPARTATE AMINO TRANSFERASE 18 U/L (15-37); BILIRUBIN,TOTAL 0.5 MG/DL (0.2-1.0); BLOOD UREA NITROGEN 6 mg/dL (7-18); CALCIUM 9.1 MG/DL (8.5-10.1); CARBON DIOXIDE 28 MMOL/L (21-32); CHLORIDE 101 MMOL/L (98-107); CREATININE 0.7 MG/DL (0.55-1.30); SODIUM 136 MMOL/L (136-145)
[2019-08-14 12:00] VITALS: BP 120/78
--- NOTE | 2019-08-14 12:55 | NUR ---
RD ASSESSMENT & RECOMMENDATIONS SEE CARE ACTIVITY FOR COMPLETE ASSESSMENT DAILY ESTIMATED NEEDS: Needs based on Cardiac, pulmonary 68.2kg 27-32 kcals/kg 0101-1355 total kcals 1-1.5 g protein/kg 68-102 g total protein 25-30 mL/kg 9132-0358 total fluid mLs NUTRITION DIAGNOSIS: Increased kcal needs r/t underweight status as evidenced by pt is 84% of [place] Body Weight, h/o CVA on texture modified diet w/ recent FTT and decreased po intake. CURRENT DIET: Regular puree/ NTL PO DIET RECOMMENDATIONS: Maintain liberalized Regular diet w/ poor PO/ texture puree + NTL ADDITIONAL RECOMMENDATIONS: 1) Per SNF: 6'0" and 150# Maintain calibrated bed scale wts 2) Add Ensure TID w/ trays 3) STAFFING RN eval for appropiate texture 4) Monitor po intake-> need for temporary non oral feeds. 5) Consider appetite simulant w/ continued poor PO
--- NOTE | 2019-08-14 13:37 | NUR ---
DISCHARGE PLAN PATIENT IS NOT ABLE TO DISCHARGE TODAY MESSAGE LEFT FOR DR ROCHE PER HEALTH DEPARTMENT GUIDELINES COVID 19 POSITIVE PATIENT'S MUST REMAIN HOSPITALIZED FOR AT LEAST 10 DAYS AND BE AFEBRILE X72 HOURS PRIOR TO DISCHARGE 8THIS PATIENT HAS ONLY BEEN HERE FOR 6 DAYS
[2019-08-14 16:00] VITALS: BP 124/60
--- NOTE | 2019-08-14 16:48 | NUR ---
*-* DISCHARGE PLANNING *-* [facility]; [phone] F: [phone] EMAIL: [email or web address]
--- NOTE | 2019-08-14 16:58 | NUR ---
*-* DISCHARGE PLANNED *-* PATIENT HAS BEEN ACCEPTED BACK TO: [facility] P: [phone] FOR NURSE TO NURSE REPORT ROOM# 200.[facility] SET FOR 5:50 OR 6PM S/W [place] [id number] Addendum: 08/14/19 at 1707 by RENETTA MARCUS CM *-* DISCHARGE PLANNED *-* PATIENT HAS BEEN ACCEPTED BACK TO: [facility] P: [phone] FOR NURSE TO NURSE REPORT ROOM# 200.C [facility] SET FOR 5:50 OR 6PM S/W [facility] [id number]
--- NOTE | 2019-08-14 18:48 | NUR ---
NURSE NOTES: Called [facility] spoke with angelaee to give report. IV removed, ID band removed. PT has VSS. Packet given to ambulance personnel.
--- NOTE | 2019-08-15 13:25 | Discharge Summary ---
Discharge Summary Discharge Summary _ DATE OF ADMISSION: 08/08/2019 DATE OF DISCHARGE: 08/14/2019 DISCHARGED BY: Dr Andrade REASON FOR ADMISSION: 64 years old male, resident of retirement facility, with history of multiply chronic medical problems, including liver failure, schizophrenia, GERD , dementia, had poor oral intake and exposure to COVID-19/ roommate was tested positive for COVID 19. Patient by himself was unable to provide any history. Chest x-ray revealed prominent basilar interstitial opacities , early infiltrate possible. Right basilar atelectasis. Laboratory work-up revealed no leukocytosis , stable hemoglobin and hematocrit ; platelet count 137. Troponin negative. Lactic acid 1.6. Stable electrolytes and renal parameters. Glucose 109. Albumin 3.0. Urinalysis revealed + 1 leukocyte esterase, no pyuria , no bacteria, +2 protein. Patient was swabbed for COVID-19. Patient subsequently admitted for further management . CONSULTANTS: psychiatrist [facility]SE: Patient admitted to telemetry floor and started on the IV fluids. Patient was kept in isolation. SARS CoV-2 by PCR came back detected. Isolation continued. Blood culture revealed Staphylococcus auricularis, likely contaminant. Repeated blood culture for clearance were negative. Patient remained afebrile , no leukocytosis. Psychiatrist seen and evaluated patient. Psychiatric medication regimen was optimized as per psychiatrist. Patient with high nutritional risk as per nutritional assessment. Protein supplements provided as per registered nurse nursery recommendation. Continue nutritional supplements at the facility. Patient was accepted back to [facility]. Patient was stable for discharge. FINAL DIAGNOSES: Confirmed COVID-19 infection Failure to thrive Protein calorie malnutrition Schizophrenia Dementia Anxiety disorder DISCHARGE MEDICATIONS: See Medication Reconciliation list. DISCHARGE INSTRUCTIONS: Patient was discharged to the retirement facility. Follow up with medical doctor at the facility. I have been assigned to dictate discharge summary for this account. I was not involved in the patient's management. Meghan Schroeder NP Aug 15, 2019 13:25
--- NOTE | 2019-08-15 20:54 | General Progress Note ---
Assessment/Plan Status: doing well, stable Assessment/Plan: Covid 19 positive Schizophrenia being treated Failure to thrive- on IV hydration Plan discharge back to [place] Subjective Date patient seen: Aug 14, 2019 Time patient seen: 11:45 Constitutional: Reports: no symptoms, weakness HEENT: Reports: no symptoms Cardiovascular: Reports: no symptoms Respiratory: Reports: no symptoms Gastrointestinal/Abdominal: Reports: no symptoms Genitourinary: Reports: no symptoms Neurologic/Psychiatric: Reports: pre-existing deficit Endocrine: Reports: no symptoms Hematologic/Lymphatic: Reports: no symptoms Allergies: Coded Allergies: No Known Allergies (Unverified , 08/08/19) Objective Intake and Output 08/14/19 08/15/19 19:00 07:00 Intake Total 120 ml Output Total 1200 ml Balance -1080 ml Intake Oral 120 ml Output Urine Total 1200 ml # Voids 3 # Bowel Movements 1 Height (Feet): 6 Height (Inches): 1.00 Weight (Pounds): 145 General Appearance: no apparent distress, alert EENT: PERRL/EOMI Neck: non-tender Cardiovascular: normal peripheral pulses Respiratory/Chest: chest wall non-tender, lungs clear Abdomen: normal bowel sounds Pelvis: normal external exam Genitourinary/Rectal: normal genital exam Extremities: normal range of motion Neurologic: abnormal gait, other - Diffuse Zhou Márquez MD Aug 15, 2019 20:53
== END 2019-08-14 18:57 | DRG 178 ==
LOC: EDBD 15:29 → EMR 15:47 → EDBEDREQ 17:19 → 2E 17:22 → EDBEDREQ 08-09 20:27 → 2E 08-09 21:37
DX: U07.1 COVID-19 (principal); E46 Unspecified protein-calorie malnutrition; R62.7 Adult failure to thrive; F20.9 Schizophrenia, unspecified; F03.90 Unspecified dementia, unspecified severity, without behavioral disturbance, psychotic disturbance, mood disturbance, and anxiety; F41.9 Anxiety disorder, unspecified; F32.9 Major depressive disorder, single episode, unspecified; K21.9 Gastro-esophageal reflux disease without esophagitis; Z68.20 Body mass index [BMI] 20.0-20.9, adult
CPT/HCPCS: 36415; 71045; 80053; 81003; 82550; 82553; 82728; 83605; 84484; 85025; 85379; 86140; 87040; 87181; 87635; 93005; 96365; 96375; 99284